=== PATIENT | female | born 1930 | race Caucasian/White ===

== ENCOUNTER 2018-06-06 09:22 | Inpatient (IN) ==
[2018-06-06] MEDS ORDERED: ONDANSETRON 4 MG/2 ML VIAL ONE (09:28)
[2018-06-06] MEDS ORDERED: ONDANSETRON 4 MG/2 ML VIAL IV STA (09:52)
[2018-06-06 09:54] LABS: Basophils # 0.1 10*3/uL (0.0-0.2); Basophils % 0.4 % (0.0-0.8); Eosinophils # 0.1 10*3/uL (0.0-0.87); Eosinophils % 0.4 % (0.00-10.9); Hematocrit 43.7 VOL% (35.7-47.0); Hemoglobin 14.1 GM/DL (12.0-16.0); Immature Granulocytes % 0.3 %; Immature Granulocytes Absolute 0.04 #; Lymphocytes # 3.5 10*3/uL (1.4-4.0); Lymphocytes % 29.8 % (21.3-54.2); Mean Corpuscular HGB Conc 32.3 GM/DL (32-36); Mean Corpuscular Hemoglobin 29 PG (27-34); Mean Corpuscular Volume 90.5 FL (87-102); Mean Platelet Volume 11.9 FL (9.6-12.0); Monocytes # 0.8 10*3/uL (0.11-0.8); Monocytes % 6.7 % (1.7-12.7); Neutrophils # 7.3 10*3/uL (1.4-7.4); Neutrophils % 62.4 % (38.7-73.9); Platelet Count 181 T/CUMM (130-400); Red Blood Count 4.83 MC/CUMM (3.8-5.5); Red Cell Distribution Width 14.5 % (9.3-17.3); White Blood Count 11.6 T/CUMM (4-12)
[2018-06-06 10:04] LABS: PT Patient Result 10.6 SECS; Partial Thromboplastin Time 24.5 SECS (0-40)
[2018-06-06 10:12] LABS: Albumin 3.1 G/DL (3.4-5.0); Bilirubin,Total 0.6 MG/DL (0.2-1.0); Calcium 9.4 MG/DL (8.5-10.1); Osmolality,Calculated 284.1 MOS/KG (273-304); Potassium 3.8 MMOL/L (3.5-5.1); Total Protein 7.2 G/DL (6.4-8.3)
[2018-06-06 11:45] LABS: Apearance,Urine CLEAR (Clear); Bilirubin,Urine Negative (Negative); Blood, Urine Small mg/dL (Negative); Glucose,Urine (UA) Negative (Negative); Ketones,Urine Negative (Negative); Mucus,Urine Occasional /LPF (Occasional); Nitrite,Urine Negative (Negative); Protein,Urine Negative; RBC,Urine 14 /HPF (0-4); Urine Color Yellow (Yellow); Urine Specific Gravity 1.012 (1.001-1.035); Urine Urobilinogen < 2.0 EU/DL (0.2-1.0); WBC,Urine <1 /HPF (0-6)
[2018-06-06] MEDS ORDERED: BISACODYL 5 MG TABLET PO PRN (12:06)
[2018-06-06] MEDS ORDERED: DOCUSATE SODIUM 100 MG CAPSULE PO PRN (12:06)
[2018-06-06] MEDS ORDERED: ZALEPLON 5 MG CAPSULE PO PRN (12:06)
[2018-06-06] MEDS ORDERED: MORPHINE 4 MG/1 ML VIAL IV PRN (12:06)
[2018-06-06] MEDS ORDERED: PROMETHAZINE 25 MG/1 ML VIAL IM PRN (12:06)
[2018-06-06] MEDS ORDERED: ACETAMINOPHEN 325 MG TABLET PO PRN (12:06)
[2018-06-06] MEDS ORDERED: traZODone 50 MG TABLET PO PRN (12:06)
[2018-06-06] MEDS ORDERED: PROMETHAZINE 25 MG TABLET PO PRN (12:06)
[2018-06-06] MEDS ORDERED: SODIUM CHLORIDE 0.45% 1,000 ML IV SCH (12:30)
[2018-06-06] MEDS: ENOXAPARIN 40 MG/0.4 ML SYRINGE SUBCUT SCH (21:02)
[2018-06-07 05:56] LABS: Basophils % 0.3 % (0.0-0.8); Eosinophils % 0.1 % (0.00-10.9); Hematocrit 40.6 VOL% (35.7-47.0); Hemoglobin 12.5 GM/DL (12.0-16.0); Immature Granulocytes % 0.3 %; Immature Granulocytes Absolute 0.04 #; Lymphocytes # 1.4 10*3/uL (1.4-4.0); Lymphocytes % 11.2 % (21.3-54.2); Mean Corpuscular HGB Conc 30.8 GM/DL (32-36); Mean Corpuscular Hemoglobin 28 PG (27-34); Mean Corpuscular Volume 92.3 FL (87-102); Mean Platelet Volume 13.6 FL (9.6-12.0); Monocytes # 1.2 10*3/uL (0.11-0.8); Monocytes % 9.3 % (1.7-12.7); Neutrophils % 78.8 % (38.7-73.9); Platelet Count 131 T/CUMM (130-400); White Blood Count 12.7 T/CUMM (4-12)
[2018-06-07 06:35] LABS: Albumin 3.1 G/DL (3.4-5.0); Bilirubin,Total 1.4 MG/DL (0.2-1.0); Calcium 9.1 MG/DL (8.5-10.1); Osmolality,Calculated 283.4 MOS/KG (273-304); Potassium 5.6 MMOL/L (3.5-5.1); Total Protein 6.7 G/DL (6.4-8.3)
[2018-06-07 06:41] LABS: Free T4 (Free Thyroxine) 1.16 NG/DL (0.76-1.46); Thyroid Stimulating Hormone 0.743 uIU/ml (0.358-3.74)
[2018-06-07] MEDS ORDERED: SODIUM CHLORIDE 0.9% 500 ML IV ONE (09:07)
[2018-06-07] MEDS ORDERED: MAGNESIUM SULF RIDER 2 GM in PREMIX 1 EACH IV PRN (12:02)
[2018-06-07] MEDS: METOPROLOL TARTRATE 25 MG TABLET PO SCH ×2 (14:00→20:25)
[2018-06-07] MEDS: PANTOPRAZOLE 40 MG TABLET PO SCH (14:00)
[2018-06-07] MEDS: SODIUM CHLORIDE 0.9% 1,000 ML IV SCH ×2 (14:00→23:22)
[2018-06-07] MEDS: ENOXAPARIN 40 MG/0.4 ML SYRINGE SUBCUT SCH (20:25)
[2018-06-08] MEDS: METOPROLOL TARTRATE 25 MG TABLET PO SCH ×4 (07:02→21:52)
[2018-06-08] MEDS: SODIUM CHLORIDE 0.9% 1,000 ML IV SCH ×2 (07:15→14:45)
[2018-06-08] MEDS ORDERED: ceFAZolin 1,000 MG VIAL ONE (07:46)
[2018-06-08] MEDS: PANTOPRAZOLE 40 MG TABLET PO SCH (09:00)
[2018-06-08] MEDS ORDERED: PROPOFOL 200 MG/20 ML VIAL IV ONE (09:09)
[2018-06-08] MEDS ORDERED: SEVOFLURANE 1 UNIT/15 MINUTE INH ONE (09:10)
[2018-06-08] MEDS ORDERED: PHENYLEPHRINE DRIP 20 MG/250 ML PREMIX IV ONE (09:10)
[2018-06-08] MEDS ORDERED: ETOMIDATE 40 MG/20 ML VIAL IV ONE (09:10)
[2018-06-08] MEDS ORDERED: GLYCOPYRROLATE 0.4 MG/2 ML VIAL ONE (09:10)
[2018-06-08] MEDS ORDERED: PHENYLEPHRINE 1 MG/10 ML SYRINGE IV ONE (09:10)
[2018-06-08] MEDS ORDERED: NEOSTIGMINE 10 MG/10 ML VIAL ONE (09:10)
[2018-06-08] MEDS ORDERED: ROCURONIUM 100 MG/10 ML VIAL IV ONE (09:10)
[2018-06-08] MEDS ORDERED: ONDANSETRON 4 MG/2 ML VIAL ONE (09:10)
[2018-06-08] MEDS ORDERED: fentaNYL 100 MCG/2 ML VIAL ONE (09:10)
[2018-06-08] MEDS ORDERED: TUBERCULIN SKIN TEST 0.1 ML SYRINGE INTRADERM ONE (11:00)
[2018-06-08] MEDS: ENOXAPARIN 40 MG/0.4 ML SYRINGE SUBCUT SCH (21:50)
[2018-06-09] MEDS: SODIUM CHLORIDE 0.9% 1,000 ML IV SCH ×3 (01:18→22:35)
[2018-06-09] MEDS: PANTOPRAZOLE 40 MG TABLET PO SCH (09:48)
[2018-06-09] MEDS: METOPROLOL TARTRATE 25 MG TABLET PO SCH ×2 (09:48→21:07)
[2018-06-09] MEDS: ENOXAPARIN 40 MG/0.4 ML SYRINGE SUBCUT SCH (21:10)
[2018-06-10 06:40] LABS: Calcium 8.3 MG/DL (8.5-10.1); Osmolality,Calculated 290.7 MOS/KG (273-304); Potassium 4.2 MMOL/L (3.5-5.1)
[2018-06-10 07:13] LABS: Basophils % 0.1 % (0.0-0.8); Eosinophils % 0.1 % (0.00-10.9); Hematocrit 24.7 VOL% (35.7-47.0); Immature Granulocytes % 1.1 %; Immature Granulocytes Absolute 0.12 #; Lymphocytes % 9.1 % (21.3-54.2); Mean Corpuscular HGB Conc 30.8 GM/DL (32-36); Mean Corpuscular Hemoglobin 30 PG (27-34); Mean Corpuscular Volume 95.7 FL (87-102); Mean Platelet Volume 12.3 FL (9.6-12.0); Monocytes # 1.5 10*3/uL (0.11-0.8); Monocytes % 13.1 % (1.7-12.7); Neutrophils # 8.7 10*3/uL (1.4-7.4); Neutrophils % 76.5 % (38.7-73.9); Platelet Count 109 T/CUMM (130-400); Red Cell Distribution Width 15.3 % (9.3-17.3); White Blood Count 11.4 T/CUMM (4-12)
[2018-06-10 07:18] LABS: Hemoglobin 7.6 GM/DL (12.0-16.0); Red Blood Count 2.58 MC/CUMM (3.8-5.5)
[2018-06-10] MEDS ORDERED: SODIUM CHLORIDE 0.9% 1,000 ML IV PRN (08:14)
[2018-06-10] MEDS: SODIUM CHLORIDE 0.9% 1,000 ML IV SCH ×2 (08:36→18:10)
[2018-06-10] MEDS: PANTOPRAZOLE 40 MG TABLET PO SCH (10:31)
[2018-06-10] MEDS: METOPROLOL TARTRATE 25 MG TABLET PO SCH ×2 (10:31→20:54)
[2018-06-10] MEDS: ENOXAPARIN 40 MG/0.4 ML SYRINGE SUBCUT SCH (20:54)
[2018-06-11] MEDS: SODIUM CHLORIDE 0.9% 1,000 ML IV SCH (01:40)
[2018-06-11 06:39] LABS: Calcium 8.6 MG/DL (8.5-10.1); Osmolality,Calculated 294.7 MOS/KG (273-304); Potassium 4.5 MMOL/L (3.5-5.1)
[2018-06-11 06:51] LABS: Basophils % 0.1 % (0.0-0.8); Hematocrit 35.3 VOL% (35.7-47.0); Immature Granulocytes % 0.9 %; Immature Granulocytes Absolute 0.09 #; Lymphocytes # 0.4 10*3/uL (1.4-4.0); Lymphocytes % 3.8 % (21.3-54.2); Mean Corpuscular HGB Conc 32.6 GM/DL (32-36); Mean Corpuscular Hemoglobin 30 PG (27-34); Mean Corpuscular Volume 92.7 FL (87-102); Mean Platelet Volume 12.9 FL (9.6-12.0); Monocytes # 0.6 10*3/uL (0.11-0.8); Monocytes % 5.5 % (1.7-12.7); NRBC # 0.04 10*3/uL; Neutrophils # 9.1 10*3/uL (1.4-7.4); Neutrophils % 89.7 % (38.7-73.9); Platelet Count 101 T/CUMM (130-400); Red Cell Distribution Width 15.9 % (9.3-17.3); White Blood Count 10.1 T/CUMM (4-12)
[2018-06-11 06:53] LABS: Hemoglobin 11.5 GM/DL (12.0-16.0); Red Blood Count 3.81 MC/CUMM (3.8-5.5)
[2018-06-11 07:32] LABS: Band Neutrophils 4 % (0-10); Hypochromasia 1+; Lymphocytes 7 % (20-55); Ovalocytes Slight; Platelet Estimate Decreased; Segmented Neutrophils 83 % (50-85); Total Cells Counted 100
[2018-06-11] MEDS: PANTOPRAZOLE 40 MG TABLET PO SCH (08:49)
[2018-06-11] MEDS: METOPROLOL TARTRATE 25 MG TABLET PO SCH (08:49)
[2018-06-11 12:10] VITALS: BP 174/104
== END 2018-06-11 12:41 | DRG 481 ==
LOC: N.ED 09:22 → N.3E 12:02 → SUATTDRO 12:02 → N.3E 13:38
PROVIDERS: ADMIT Hospitalist; ATTEND Internal Medicine Geriatric Medicine

== ENCOUNTER 2018-07-01 13:09 | Inpatient (IN) ==
[2018-07-01] MEDS ORDERED: SODIUM CHLORIDE 0.9% 1,000 ML IV STA (13:40)
[2018-07-01 14:59] LABS: Basophils % 0.4 % (0.0-0.8); Eosinophils # 0.2 10*3/uL (0.0-0.87); Eosinophils % 2.5 % (0.00-10.9); Immature Granulocytes % 0.9 %; Immature Granulocytes Absolute 0.08 #; Lymphocytes % 21.5 % (21.3-54.2); Mean Corpuscular HGB Conc 30.2 GM/DL (32-36); Mean Corpuscular Hemoglobin 30 PG (27-34); Mean Corpuscular Volume 98.2 FL (87-102); Mean Platelet Volume 11.4 FL (9.6-12.0); Monocytes # 0.9 10*3/uL (0.11-0.8); Monocytes % 9.4 % (1.7-12.7); Neutrophils # 6.1 10*3/uL (1.4-7.4); Neutrophils % 65.3 % (38.7-73.9); Platelet Count 222 T/CUMM (130-400); Red Blood Count 4.38 MC/CUMM (3.8-5.5); Red Cell Distribution Width 17.1 % (9.3-17.3); White Blood Count 9.3 T/CUMM (4-12)
[2018-07-01 15:10] LABS: Albumin 2.7 G/DL (3.4-5.0); Bilirubin,Total 1.2 MG/DL (0.2-1.0); Calcium 8.5 MG/DL (8.5-10.1); Osmolality,Calculated 292.8 MOS/KG (273-304); Potassium 4.1 MMOL/L (3.5-5.1); Total Protein 6.6 G/DL (6.4-8.3)
[2018-07-01] MEDS ORDERED: ACETAMINOPHEN 325 MG TABLET PO PRN (15:59)
[2018-07-01] MEDS ORDERED: ONDANSETRON 4 MG/2 ML VIAL IV PRN (15:59)
[2018-07-01] MEDS ORDERED: LACTULOSE 20 GM/30 ML UDCUP PO PRN (15:59)
[2018-07-01 17:59] LABS: Apearance,Urine CLOUDY (Clear); Bacteria,Urine Moderate /HPF (Few); Bilirubin,Urine Negative (Negative); Blood, Urine Small mg/dL (Negative); Glucose,Urine (UA) Negative (Negative); Ketones,Urine Negative (Negative); Mucus,Urine Occasional /LPF (Occasional); Nitrite,Urine Negative (Negative); Protein,Urine 30 MG/DL; RBC,Urine 3 /HPF (0-4); Squamous Epithelial Cell,Urine Occasional /HPF (0-10); WBC,Urine 17 /HPF (0-6)
[2018-07-01 18:01] LABS: Urine Color Yellow (Yellow)
[2018-07-01 18:03] LABS: Barbiturates Screen,Urine Negative (Negative); Benzodiazepines Screen,Urine Negative (Negative); Cannabinoid Screen,Urine Negative (Negative); Opiate Screen,Urine Negative (Negative); Phencyclidine Screen,Urine Negative (Negative)
[2018-07-01] MEDS: SODIUM CHLORIDE 0.45% 1,000 ML IV SCH (18:42)
[2018-07-01] MEDS: METOPROLOL TARTRATE 25 MG TABLET PO SCH (21:18)
[2018-07-02 05:40] LABS: Basophils % 0.4 % (0.0-0.8); Eosinophils # 0.3 10*3/uL (0.0-0.87); Eosinophils % 3.6 % (0.00-10.9); Hematocrit 38.8 VOL% (35.7-47.0); Hemoglobin 11.7 GM/DL (12.0-16.0); Immature Granulocytes % 0.6 %; Immature Granulocytes Absolute 0.05 #; Lymphocytes # 1.4 10*3/uL (1.4-4.0); Lymphocytes % 16.6 % (21.3-54.2); Mean Corpuscular HGB Conc 30.2 GM/DL (32-36); Mean Corpuscular Hemoglobin 29 PG (27-34); Mean Corpuscular Volume 97.5 FL (87-102); Mean Platelet Volume 11.8 FL (9.6-12.0); Monocytes # 0.8 10*3/uL (0.11-0.8); Monocytes % 9.9 % (1.7-12.7); Neutrophils # 5.6 10*3/uL (1.4-7.4); Neutrophils % 68.9 % (38.7-73.9); Platelet Count 233 T/CUMM (130-400); Red Blood Count 3.98 MC/CUMM (3.8-5.5); Red Cell Distribution Width 16.7 % (9.3-17.3); White Blood Count 8.2 T/CUMM (4-12)
[2018-07-02 06:02] LABS: Calcium 8.6 MG/DL (8.5-10.1); Potassium 3.8 MMOL/L (3.5-5.1)
[2018-07-02] MEDS: METOPROLOL TARTRATE 25 MG TABLET PO SCH ×2 (08:23→21:11)
[2018-07-02] MEDS: cefTRIAXone 1,000 MG in SYRINGE 1 EACH IV SCH (08:23)
[2018-07-02] MEDS: amLODIPine 5 MG TABLET PO SCH (08:23)
[2018-07-02] MEDS: ASPIRIN EC 325 MG TABLET PO SCH (08:23)
[2018-07-02] MEDS: SODIUM CHLORIDE 0.45% 1,000 ML IV SCH ×2 (08:23→17:44)
[2018-07-02 10:55] LABS: Free T4 (Free Thyroxine) 1.44 NG/DL (0.76-1.46); Thyroid Stimulating Hormone 1.19 uIU/ml (0.358-3.74)
[2018-07-02] MEDS ORDERED: amLODIPine 5 MG TABLET PO ONE ×2 (14:05→14:07)
[2018-07-02] MEDS: ACETAMINOPHEN 325 MG TABLET PO PRN (16:12)
[2018-07-03] MEDS: cefTRIAXone 1,000 MG in SYRINGE 1 EACH IV SCH (09:18)
[2018-07-03] MEDS: amLODIPine 5 MG TABLET PO SCH (09:19)
[2018-07-03] MEDS: METOPROLOL TARTRATE 25 MG TABLET PO SCH ×2 (09:20→20:34)
[2018-07-03] MEDS: ASPIRIN EC 325 MG TABLET PO SCH (09:20)
[2018-07-03] MEDS ORDERED: ZALEPLON 5 MG CAPSULE PO PRN (12:49)
[2018-07-03] MEDS: FLUCONAZOLE 200 MG TABLET PO SCH (13:26)
[2018-07-03] MEDS: ACETAMINOPHEN 325 MG TABLET PO PRN ×2 (15:29→20:33)
[2018-07-03] MEDS: SODIUM CHLORIDE 0.45% 1,000 ML IV SCH (17:21)
[2018-07-03] MEDS ORDERED: traZODone 50 MG TABLET PO SCH (21:00)
[2018-07-04] MEDS: SODIUM CHLORIDE 0.45% 1,000 ML IV SCH ×4 (00:09→23:35)
[2018-07-04 05:51] LABS: Basophils % 0.3 % (0.0-0.8); Eosinophils # 0.2 10*3/uL (0.0-0.87); Eosinophils % 1.8 % (0.00-10.9); Hemoglobin 13.3 GM/DL (12.0-16.0); Immature Granulocytes % 0.6 %; Immature Granulocytes Absolute 0.05 #; Lymphocytes # 1.6 10*3/uL (1.4-4.0); Lymphocytes % 17.9 % (21.3-54.2); Mean Corpuscular HGB Conc 30.9 GM/DL (32-36); Mean Corpuscular Hemoglobin 29 PG (27-34); Mean Corpuscular Volume 94.5 FL (87-102); Mean Platelet Volume 11.6 FL (9.6-12.0); Monocytes # 0.8 10*3/uL (0.11-0.8); Monocytes % 8.4 % (1.7-12.7); Neutrophils # 6.3 10*3/uL (1.4-7.4); Platelet Count 274 T/CUMM (130-400); Red Blood Count 4.55 MC/CUMM (3.8-5.5); Red Cell Distribution Width 16.6 % (9.3-17.3); White Blood Count 8.9 T/CUMM (4-12)
[2018-07-04 06:12] LABS: Calcium 8.8 MG/DL (8.5-10.1); Osmolality,Calculated 275.5 MOS/KG (273-304); Potassium 3.5 MMOL/L (3.5-5.1)
[2018-07-04] MEDS: METOPROLOL TARTRATE 25 MG TABLET PO SCH ×2 (09:11→21:39)
[2018-07-04] MEDS: FLUCONAZOLE 200 MG TABLET PO SCH (09:11)
[2018-07-04] MEDS: cefTRIAXone 1,000 MG in SYRINGE 1 EACH IV SCH (09:12)
[2018-07-04] MEDS: amLODIPine 5 MG TABLET PO SCH (09:12)
[2018-07-04] MEDS: ASPIRIN EC 325 MG TABLET PO SCH (09:12)
[2018-07-05] MEDS: SODIUM CHLORIDE 0.45% 1,000 ML IV SCH ×4 (02:32→22:03)
[2018-07-05] MEDS: METOPROLOL TARTRATE 25 MG TABLET PO SCH ×2 (09:38→22:03)
[2018-07-05] MEDS: cefTRIAXone 1,000 MG in SYRINGE 1 EACH IV SCH (09:38)
[2018-07-05] MEDS: FLUCONAZOLE 200 MG TABLET PO SCH (09:38)
[2018-07-05] MEDS: amLODIPine 5 MG TABLET PO SCH (09:38)
[2018-07-05] MEDS: ASPIRIN EC 325 MG TABLET PO SCH (09:38)
[2018-07-05] MEDS ORDERED: MAGNESIUM HYDROXIDE SUSP 30 ML UDCUP PO ONE (12:34)
[2018-07-06] MEDS: SODIUM CHLORIDE 0.45% 1,000 ML IV SCH (03:53)
[2018-07-06 07:15] VITALS: BP 144/72
[2018-07-06] MEDS: ASPIRIN EC 325 MG TABLET PO SCH (08:41)
[2018-07-06] MEDS: cefTRIAXone 1,000 MG in SYRINGE 1 EACH IV SCH (08:41)
[2018-07-06] MEDS: METOPROLOL TARTRATE 25 MG TABLET PO SCH (08:41)
[2018-07-06] MEDS: amLODIPine 5 MG TABLET PO SCH (08:41)
[2018-07-06] MEDS: FLUCONAZOLE 200 MG TABLET PO SCH (08:41)
[2018-07-06 08:45] LABS: Basophils % 0.6 % (0.0-0.8); Eosinophils # 0.2 10*3/uL (0.0-0.87); Eosinophils % 2.2 % (0.00-10.9); Hematocrit 38.2 VOL% (35.7-47.0); Hemoglobin 11.8 GM/DL (12.0-16.0); Immature Granulocytes % 0.4 %; Immature Granulocytes Absolute 0.03 #; Lymphocytes # 1.5 10*3/uL (1.4-4.0); Lymphocytes % 22.3 % (21.3-54.2); Mean Corpuscular HGB Conc 30.9 GM/DL (32-36); Mean Corpuscular Hemoglobin 29 PG (27-34); Mean Corpuscular Volume 93.6 FL (87-102); Mean Platelet Volume 11.7 FL (9.6-12.0); Monocytes # 0.7 10*3/uL (0.11-0.8); Monocytes % 10.3 % (1.7-12.7); Neutrophils # 4.3 10*3/uL (1.4-7.4); Neutrophils % 64.2 % (38.7-73.9); Platelet Count 245 T/CUMM (130-400); Red Blood Count 4.08 MC/CUMM (3.8-5.5); Red Cell Distribution Width 16.3 % (9.3-17.3); White Blood Count 6.7 T/CUMM (4-12)
[2018-07-06 09:02] LABS: Calcium 8.3 MG/DL (8.5-10.1); Osmolality,Calculated 279.1 MOS/KG (273-304); Potassium 3.3 MMOL/L (3.5-5.1)
[2018-07-06] MEDS ORDERED: POTASSIUM CHLORIDE 8 MEQ CAPSULE PO SCH (10:30)
== END 2018-07-06 10:17 | disposition home health service (06) | DRG 689 ==
LOC: EDBD → EDUNIT# → N.EDINP 13:09 → N.ED 13:09 → SUATTDRO 15:59 → N.EDINP 18:10 → N.2E 18:15
PROVIDERS: ADMIT Internal Medicine; ATTEND Internal Medicine